=== PATIENT | female | born 1990 | race Two or more races ===

== ENCOUNTER 2019-06-26 17:40 | Observation (INO) | payer MEDICAID | END 2019-06-26 19:10 | disposition home or self-care (01) | LOC: 8 EST LDRP 17:40 | PROVIDERS: ADMIT Obstetrics & Gynecology; ATTEND Obstetrics & Gynecology | DX: O62.9 Abnormality of forces of labor, unspecified (principal); Z3A.40 40 weeks gestation of pregnancy | CPT/HCPCS: 99281; G0378 ==

== ENCOUNTER 2019-06-30 00:23 | Inpatient (IN) | payer MEDICAID ==
[~2019-06-30] VITALS: Ht 157.5 cm; Wt 81.6 kg
[2019-06-30] MEDS ORDERED: LACTATED RINGERS 1,000 ML IV STA (03:56)
[2019-06-30] MEDS ORDERED: MORPHINE SULFATE/PF 1MG/ML 10ML AMP ONE (04:37)
[2019-06-30 04:40] LABS: BASOPHILS % 0.3 % (0.0-2.0); EOSINOPHILS % 0.1 % (0.0-5.0); HEMATOCRIT. 40.1 % (36.0-48.0); HEMOGLOBIN. 14.1 g/dL (12.0-16.0); LYMPHOCYTES % 23.1 % (20.0-50.0); MEAN CORPUSCULAR VOLUME 96.9 fL (81.0-99.0); MEAN PLATELET VOLUME 8.6 fl (7.4-10.4); MONOCYTES % 6.1 % (2.0-8.0); NEUTROPHILS % 70.4 % (40.0-76.0); PLATELET 227 x1000/uL (130-400); RED BLOOD CELL COUNT 4.14 mill/uL (4.2-5.4); RED CELL DISTRIBUTION WIDTH 14.6 % (11.6-14.6)
[2019-06-30 04:48] LABS: INR 0.9; PARTIAL THROMBOPLASTIN TIME 30.5 sec (23.4-31.0); PROTHROMBIN TIME 9.4 sec (9.6-11.0)
[2019-06-30] MEDS ORDERED: MEPERIDINE HCL/PF 25MG/ML CPJ IV PRN (05:30)
[2019-06-30] MEDS ORDERED: HYDROMORPHONE HCL/PF 2MG/ML CPJ IV PRN (05:30)
[2019-06-30] MEDS ORDERED: ONDANSETRON HCL 4MG/2ML INJ IV PRN ×2 (05:30→06:00)
[2019-06-30] MEDS ORDERED: LABETALOL HCL 5MG/ML VIAL 20ML IV PRN (05:30)
[2019-06-30] MEDS ORDERED: DEXT 5%/LR + PITOCIN 20UNITS/L 1,000 ML IV SCH (05:48)
[2019-06-30] MEDS ORDERED: CEFAZOLIN SODIUM 1000MG/VIAL ONE (05:54)
[2019-06-30] MEDS ORDERED: EPHEDRINE SULFATE 50MG/ML VIAL ONE (05:54)
[2019-06-30] MEDS ORDERED: OXYTOCIN 10 UNITS/ML 1ML ONE (05:54)
[2019-06-30] MEDS ORDERED: SODIUM CHLORIDE 0.9% 10ML VIAL ONE (05:55)
[2019-06-30] MEDS ORDERED: RHO(D) IMMUNE GLOBULIN 300 MCG/SYR IM PRN (06:00)
[2019-06-30] MEDS ORDERED: IBUPROFEN 400MG TABLET PO PRN (06:00)
[2019-06-30] MEDS ORDERED: HYDROCODONE/ACETAMINOPHEN 5/325MG TABLET PO PRN (06:00)
[2019-06-30] MEDS ORDERED: BISACODYL 10MG SUPP PR PRN (06:00)
[2019-06-30] MEDS ORDERED: LANOLIN OINT 7GM TUBE TOP PRN (06:00)
[2019-06-30 09:00] VITALS: BP 115/76
[2019-06-30] MEDS ORDERED: DIPHENHYDRAMINE 50MG/ML VIAL IV PRN (10:30)
[2019-06-30 11:35] LABS: HEPATITIS B SURFACE ANTIGEN NEGATIVE
[2019-06-30 16:00] VITALS: BP 109/70
[2019-06-30 17:32] LABS: CLARITY URINE CLEAR (CLEAR); COLOR URINE YELLOW (YELLOW); KETONES URINE NEGATIVE (NEGATIVE); LEUKOCYTE ESTERASE URINE NEGATIVE (NEGATIVE); NITRITE URINE NEGATIVE (NEGATIVE); OCCULT BLOOD URINE TRACE (NEGATIVE); PROTEIN URINE NEGATIVE (NEGATIVE); SPECIFIC GRAVITY URINE 1.009 (1.005-1.030); UROBILINOGEN URINE 0.2 E.U./dL (0.2-1.0)
[2019-06-30 18:02] LABS: *AMPHETAMINES SCREEN URINE NEGATIVE (NEGATIVE); *BARBITURATES SCREEN URINE NEGATIVE (NEGATIVE); *BENZODIAZEPINES SCREEN URINE NEGATIVE (NEGATIVE); *COCAINE SCREEN URINE NEGATIVE (NEGATIVE); METHADONE URINE SCREEN NEGATIVE (NEGATIVE); OPIATES URINE SCREEN NEGATIVE (NEGATIVE); PHENCYCLIDINE URINE SCREEN NEGATIVE (NEGATIVE)
[2019-06-30 18:03] LABS: CANNABINOID URINE SCREEN NEGATIVE (NEGATIVE)
[2019-06-30 19:48] VITALS: BP 112/71
[2019-06-30] MEDS: DOCUSATE SODIUM 100MG CAPSULE PO SCH (21:15)
[2019-06-30 23:50] VITALS: BP 111/72
[2019-07-01 05:18] VITALS: BP 109/58
[2019-07-01 06:34] LABS: BASOPHILS % 0.1 % (0.0-2.0); HEMOGLOBIN. 11.4 g/dL (12.0-16.0); LYMPHOCYTES % 9.2 % (20.0-50.0); MEAN CORPUSCULAR HEMOGLOBIN 33.6 pg (28.0-32.0); MEAN CORPUSCULAR VOLUME 97.5 fL (81.0-99.0); MONOCYTES % 6.1 % (2.0-8.0); NEUTROPHILS % 84.6 % (40.0-76.0); PLATELET 188 x1000/uL (130-400); RED BLOOD CELL COUNT 3.39 mill/uL (4.2-5.4); RED CELL DISTRIBUTION WIDTH 14.5 % (11.6-14.6)
[2019-07-01] MEDS: ACETAMINOPHEN WITH CODEINE 300/30MG TABLET PO PRN ×3 (07:48→16:13)
[2019-07-01] MEDS: PRENATAL VIT/FE FUMARATE/FA TABLET PO SCH ×2 (07:49→20:00)
[2019-07-01 17:04] VITALS: BP 100/60
[2019-07-01 20:19] VITALS: BP 109/67
[2019-07-01] MEDS: DOCUSATE SODIUM 100MG CAPSULE PO SCH (20:22)
[2019-07-02 05:00] VITALS: BP 117/77
[2019-07-02] MEDS: ACETAMINOPHEN WITH CODEINE 300/30MG TABLET PO PRN ×3 (07:07→16:49)
[2019-07-02 08:00] VITALS: BP 116/76
[2019-07-02] MEDS: PRENATAL VIT/FE FUMARATE/FA TABLET PO SCH (08:58)
[2019-07-02 12:00] VITALS: BP 111/70
[2019-07-02 16:00] VITALS: BP 107/65
[2019-07-02 19:29] VITALS: BP 108/73
[2019-07-02] MEDS: DOCUSATE SODIUM 100MG CAPSULE PO SCH (20:41)
[2019-07-03 03:29] VITALS: BP 106/66
[2019-07-03] MEDS ORDERED: TETANUS, DIPHTHERIA, PERTUSSIS VAC/PF 0.5ML (>7YR OLD) IM ONE (06:00)
[2019-07-03] MEDS ORDERED: INFLUENZA VIRUS VACCINE(AFLURIA) 0.5ML SYR IM ONE (06:00)
[2019-07-03 08:00] VITALS: BP 118/66
[2019-07-03] MEDS: PRENATAL VIT/FE FUMARATE/FA TABLET PO SCH (08:05)
[2019-07-03] MEDS: ACETAMINOPHEN WITH CODEINE 300/30MG TABLET PO PRN (08:05)
== END 2019-07-03 09:00 | disposition home or self-care (01) | DRG 540 ==
LOC: 8 EST LDRP 00:23 → OBSVTOIN 00:23 → 8EST 08:20
PROVIDERS: ADMIT Obstetrics & Gynecology; ATTEND Obstetrics & Gynecology
PROC: 10D00Z1 Extraction of Products of Conception, Low, Open Approach (ICD-10-PCS; principal; 2019-06-30)
DX: O32.1XX0 Maternal care for breech presentation, not applicable or unspecified (principal); O34.211 Maternal care for low transverse scar from previous cesarean delivery; O48.0 Post-term pregnancy; Z37.0 Single live birth; Z3A.40 40 weeks gestation of pregnancy
CPT/HCPCS: 36415; 80305; 81003; 86592; 86703; 86762; 86850; 86900; 87340; 88307; 90686; 90715; 99281; G0378; J0690; J1200; J2274; J2405; J2590; J3490; A4315